=== PATIENT | male | born 1965 | race Caucasian/White ===

== ENCOUNTER 2017-10-17 10:02 | Inpatient (IN) | payer OTHER, BC ==
[2017-10-17] MEDS ORDERED: POLYMYXIN/BACITRACIN 1L IRRIG (11:43)
[2017-10-17] MEDS ORDERED: GELATIN SIZE 100 SPONGE (11:44)
[2017-10-17] MEDS ORDERED: PROPOFOL 20 ML (12:02)
[2017-10-17] MEDS ORDERED: NEOSTIGMINE 3 MG/3 ML SYRINGE ×2 (12:02→15:53)
[2017-10-17] MEDS ORDERED: ROCURONIUM 50 MG INJ ×2 (12:02→15:53)
[2017-10-17] MEDS ORDERED: SUCCINYLCHOLINE CHLORIDE 100 MG/5 ML SYG IV (12:02)
[2017-10-17] MEDS ORDERED: LIDOCAINE 2% (SDV) 5 ML INJ (12:02)
[2017-10-17] MEDS ORDERED: GLYCOPYRROLATE 0.4 MG INJ ×3 (12:02→15:53)
[2017-10-17] MEDS ORDERED: MEPERIDINE 100 MG INJ (12:02)
[2017-10-17] MEDS: LACTATED RINGER'S 1,000 ML IV* (12:04)
[2017-10-17] MEDS ORDERED: CEFAZOLIN 1 GM INJ (12:07)
[2017-10-17] MEDS ORDERED: HYDROmorphONE 0.5 MG/0.5 ML SYG IV (12:30)
[2017-10-17] MEDS ORDERED: ONDANSETRON 4 MG INJ IV ×2 (12:30→15:30)
[2017-10-17] MEDS ORDERED: DIPHENHYDRAMINE 50 MG INJ IV ×2 (12:30→15:30)
[2017-10-17] MEDS ORDERED: DIPHENHYDRAMINE 25 MG CAP PO (12:30)
[2017-10-17] MEDS ORDERED: HYDROCODONE/APAP (10/325) TAB PO (12:30)
[2017-10-17] MEDS ORDERED: BISACODYL 10 MG SUPP PR (12:30)
[2017-10-17] MEDS ORDERED: ACETAMINOPHEN 325 MG TAB PO (12:30)
[2017-10-17] MEDS ORDERED: AL HYDROX/MG HYDROX/SIMETH 30 ML CUP PO (12:30)
[2017-10-17] MEDS ORDERED: NALOXONE (0.4 MG/ML) INJ IV (12:30)
[2017-10-17] MEDS: CEFAZOLIN 2 GM/50 ML (PMX) 50 ML IVPB (12:40)
[2017-10-17] MEDS ORDERED: hydrALAzine 20 MG INJ (12:56)
[2017-10-17] MEDS: LIDOCAINE 1%/EPI 30 ML INJ (12:56)
[2017-10-17] MEDS: SURGIFOAM POWDER 1 GM KIT (13:03)
[2017-10-17] MEDS: THROMBIN 5000 UNIT VIAL (13:05)
[2017-10-17] MEDS: SODIUM CL BACTERIOSTATIC 30 ML INJ (13:06)
[2017-10-17] MEDS: HEPARIN 1000 UNITS/ML 10 ML INJ (13:07)
[2017-10-17] MEDS: CEFAZOLIN 1 GM INJ (13:09)
[2017-10-17] MEDS: CA CHLORIDE 10% 10 ML SYRINGE (13:10)
[2017-10-17] MEDS ORDERED: ONDANSETRON 4 MG INJ (13:11)
[2017-10-17] MEDS ORDERED: LABETALOL HCL 20MG INJ IV (15:30)
[2017-10-17] MEDS ORDERED: FENTAnyl 50 MCG/ML VIAL IV ×2 (15:30)
[2017-10-17] MEDS ORDERED: EPHEDrine SULFATE 50 MG/5 ML SYG IV (15:30)
[2017-10-17] MEDS ORDERED: MIDAZOLAM 1 MG/ML 2 ML INJ IV (15:30)
[2017-10-17] MEDS ORDERED: METOCLOPRAMIDE 10 MG INJ IV (15:30)
[2017-10-17] MEDS ORDERED: MEPERIDINE 25 MG INJ IV (15:30)
[2017-10-17] MEDS ORDERED: OXYCODONE/ACETAMINOPHEN (5/325) TAB PO ×2 (15:30)
[2017-10-17] MEDS ORDERED: HYDROmorphONE (0.2 MG/ML) 10ML SYG IV ×3 (15:30)
[2017-10-17] MEDS ORDERED: hydrALAzine 20 MG INJ IV (15:30)
[2017-10-17] MEDS: HYDROmorphONE 0.2 MG/ML PCA IV (16:53)
[2017-10-17] MEDS: FENTAnyl 50 MCG/ML VIAL IV (17:20)
[2017-10-17] MEDS: CEFAZOLIN 1 GM/50 ML (PMX) 50 ML IVPB ×2 (17:30→21:21)
[2017-10-17] MEDS: D5W-0.45 NACL + KCL 20 MEQ 1,000 ML IV (17:55)
[2017-10-17] MEDS: CEPASTAT LOZENGE MT (20:06)
[2017-10-17] MEDS: DOCUSATE SODIUM 100 MG CAP PO (21:21)
[2017-10-18] MEDS: HYDROmorphONE 0.2 MG/ML PCA IV (00:10)
[2017-10-18] MEDS: CEFAZOLIN 1 GM/50 ML (PMX) 50 ML IVPB (04:50)
[2017-10-18] MEDS: D5W-0.45 NACL + KCL 20 MEQ 1,000 ML IV ×3 (04:50→17:17)
[2017-10-18 05:10] LABS: ADD MAN DIFF? NO
[2017-10-18 05:15] LABS: BASOPHILS % 0.2 % (0.0-2.0); HEMATOCRIT 36.3 % (42.0-52.0); HEMOGLOBIN 11.8 g/dl (14.0-18.0); LYMPHOCYTES # 0.9 10^3/ul (0.8-2.9); LYMPHOCYTES % 7.5 % (15.0-51.0); MEAN CORPUSCULAR HEMOGLOBIN 26.6 pg (29.0-33.0); MEAN CORPUSCULAR HGB CONC 32.5 g/dl (32.0-37.0); MEAN CORPUSCULAR VOLUME 81.8 fl (82.0-101.0); MEAN PLATELET VOLUME 10.6 fl (7.4-10.4); NEUTROPHIL # 10.4 10^3/ul (1.6-7.5); NEUTROPHILS % 83.9 % (39.0-77.0); PLATELET COUNT 259 10^3/UL (140-415); RED BLOOD COUNT 4.44 10^6/ul (4.70-6.10)
[2017-10-18 05:15] LABS: WHITE BLOOD COUNT 12.4 10^3/ul (4.8-10.8)
[2017-10-18 05:47] LABS: ANION GAP 11 (8-16); BLOOD UREA NITROGEN 13 mg/dl (7-20); CALCIUM 8.4 mg/dl (8.4-10.2); CARBON DIOXIDE 28 mmol/L (21-31); CHLORIDE 107 mmol/L (97-110); CREATININE 0.84 mg/dl (0.61-1.24); GLUCOSE 104 mg/dl (70-220); POTASSIUM 4.7 mmol/L (3.5-5.1); SODIUM 141 mmol/L (135-144)
[2017-10-18] MEDS: PANTOPRAZOLE 40 MG INJ IV (06:10)
[2017-10-18] MEDS: HYDROCODONE/APAP (10/325) TAB PO ×4 (08:22→22:46)
[2017-10-18] MEDS: DOCUSATE SODIUM 100 MG CAP PO ×2 (08:22→20:13)
[2017-10-18] MEDS: CYCLOBENZAPRINE 10 MG TAB PO ×2 (08:51→16:05)
[2017-10-18] MEDS: KETOROLAC 30 MG INJ IV (14:27)
[2017-10-18] MEDS: BETHANECHOL 25 MG TAB PO (20:13)
[2017-10-19] MEDS: D5W-0.45 NACL + KCL 20 MEQ 1,000 ML IV (04:08)
[2017-10-19] MEDS: HYDROCODONE/APAP (10/325) TAB PO ×2 (04:56→09:18)
[2017-10-19] MEDS: CYCLOBENZAPRINE 10 MG TAB PO (04:59)
[2017-10-19] MEDS: PANTOPRAZOLE (EC) 40 MG TAB PO (06:22)
[2017-10-19] MEDS: BETHANECHOL 25 MG TAB PO (06:23)
[2017-10-19] MEDS: TAMSULOSIN (SR) 0.4 MG CAP PO (08:33)
[2017-10-19] MEDS: DOCUSATE SODIUM 100 MG CAP PO (08:33)
== END 2017-10-19 10:15 | disposition home or self-care (01) | DRG 517 ==
LOC: REC 10:02 → MS1 17:50
PROC: 01NB0ZZ Release Lumbar Nerve, Open Approach (ICD-10-PCS; principal; 2017-10-17 12:00)
DX: M51.16 Intervertebral disc disorders with radiculopathy, lumbar region (principal); M48.061 Spinal stenosis, lumbar region without neurogenic claudication; M51.17 Intervertebral disc disorders with radiculopathy, lumbosacral region
CPT/HCPCS: 72110; 80048; 83735; 85025; 86999; 87086; 97116; 97161; 97530